=== PATIENT | female | born 1935 | race Caucasian/White ===

== ENCOUNTER 2018-12-14 05:22 | Day surgery (SDC) | payer MEDICARE, MEDICAID ==
[2018-12-14] MEDS ORDERED: ePHEDrine SULF 50 MG/ML ONE (07:00)
[2018-12-14] MEDS ORDERED: SODIUM CHLORIDE 0.9% 50 ML VIAL ONE (07:00)
[2018-12-14] MEDS ORDERED: LIDOCAINE 1% 10 ML VIAL INJ ONE (07:00)
[2018-12-14] MEDS ORDERED: raNITIdine HCL INJ 25 MG/ML VIAL ONE (07:00)
[2018-12-14] MEDS ORDERED: DEXAMETHASONE INJ 10 MG/ML VIAL ONE (07:00)
[2018-12-14] MEDS ORDERED: PROPOFOL 200 MG/20 ML VIAL IV ONE (07:00)
[2018-12-14] MEDS ORDERED: LACTATED RINGERS 1,000 ML ONE (07:14)
[2018-12-14] MEDS ORDERED: cefOXitin SODIUM 2 GM INJ IVPB ONE (07:14)
[2018-12-14] MEDS ORDERED: SODIUM CHL 0.9% 50ML MIN-BAG+ 50 ML IVPB ONE (07:15)
[2018-12-14] MEDS ORDERED: LACTATED RINGERS 1,000 ML IVS ONE ×2 (10:20→13:38)
[2018-12-14] MEDS ORDERED: KETAMINE HCL 100 MG/ML VIAL ONE (12:18)
[2018-12-14] MEDS ORDERED: ROCURONIUM BROMIDE 10 MG/ML VIAL ONE (12:18)
[2018-12-14] MEDS ORDERED: fentaNYL CITRATE INJ 50 MCG/ML AMP ONE (12:18)
[2018-12-14] MEDS ORDERED: BUPIVACAINE 0.5% W/EPI 30 ML VIAL INJ ONE (12:58)
[2018-12-14] MEDS ORDERED: SUGAMMADEX SODIUM 200 MG/2 ML VIAL IV ONE (13:18)
[2018-12-14] MEDS ORDERED: LEVALBUTEROL NEBS 1.25 MG/3 ML VIAL NEB ONE ×2 (13:45)
[2018-12-14] MEDS ORDERED: HYDROcodone 5MG/APAP 325MG 1 EA TAB PO ONE (14:35)
[2018-12-14] MEDS ORDERED: HYDROcodone 5MG/APAP 325MG 1 EA TAB ONE (14:36)
[2018-12-14 15:23] VITALS: BP 121/71; TEMP 98.2; O2SAT 97
--- NOTE | 2018-12-27 10:01 | OP ---
DATE OF PROCEDURE: 12/14/18 PREOPERATIVE DIAGNOSIS: 1. Internal and external hemorrhoids. POSTOPERATIVE DIAGNOSIS: 1. Internal and external hemorrhoids. PROCEDURE: 1. Complete internal and external hemorrhoidectomy. 2. Complete excision of external anal tag. 3. Banding of internal hemorrhoid. 4. Bilateral pudendal nerve blocks for postoperative pain control. SURGEON: Modesto Castaneda MD. ANESTHESIA: General and local. FINDINGS: As described. CONDITION: Stable. PLAN: Discharge. PROCEDURE: General anesthesia was induced. She was placed in a prone, jackknife position with gluteal cheeks taped apart. She was prepped and draped in sterile fashion. Digital rectal exam was normal revealing no masses. Anoscopy exam revealed the hemorrhoids. A single hemorrhoid column was removed, ligating the base, excising in elliptical fashion including external hemorrhoid and tag. It was closed with a running 3-0 Vicryl. A moderate sized external tag was excised and left open. Additional hemorrhoid on the opposite side was banded proximal to the dentate umair. 0.5% Marcaine with epinephrine, 3 mL on each side for bilateral pudendal nerve blocks were performed for postoperative control. Additional local was placed. She tolerated the procedure. She was awakened and taken to Recovery to be discharged. #[id number] [facility]
== END 2018-12-14 15:20 | disposition home or self-care (01) ==
LOC: AMB 05:22
PROVIDERS: ATTEND Surgery
DX: K64.8 Other hemorrhoids (principal); K64.4 Residual hemorrhoidal skin tags; I10 Essential (primary) hypertension; I47.1 Supraventricular tachycardia; K58.2 Mixed irritable bowel syndrome; F41.9 Anxiety disorder, unspecified; K21.9 Gastro-esophageal reflux disease without esophagitis; F32.9 Major depressive disorder, single episode, unspecified; Z88.5 Allergy status to narcotic agent; Z90.710 Acquired absence of both cervix and uterus; Z90.49 Acquired absence of other specified parts of digestive tract; Z87.891 Personal history of nicotine dependence; Z79.899 Other long term (current) drug therapy
CPT/HCPCS: 00902; 36416; 46260; 64450; 82948; 88304; 93005; 94640; A4216; J0694; J1100; J2780; J3010; J3490; J7050; J7120; J7614

== ENCOUNTER → 2019-02-05 | Outpatient (CLI) | payer MEDICARE, MEDICAID ==
--- NOTE | 2019-02-05 20:49 | CT ---
EXAM DESCRIPTION: Pelvis w/Contrast: Computed Tomography. CLINICAL HISTORY: PELVIC MASS COMPARISON: None. TECHNIQUE: Spiral-axial scans 5 x 5 mm intervals through the pelvis: no water soluble barium contrast; with Optiray 320 nonionic IV contrast. Coronal and sagittal 3.0 mm reconstructions. Total Exam DLP: 693.5 mGy-cm. This exam was performed according to our departmental CT dose-optimization program which includes automated exposure control, adjustment of the mA and/or kV according to patient size and/or use of iterative reconstruction technique; to reduce radiation dose to as low as reasonably achievable (ALARA). FINDINGS: Colon: Eccentric enhancing mass in the inferior anterior rectum surrounding low-density material with thickening of the anterior rectal wall and stranding in the anterior perirectal fat, axial images -50. This tissue measures approximately 2.7 x 3.8 x 1.7 cm. The fatty edema does not extend beyond the rectal sling bilaterally. However, minimal fatty stranding/edema is visible in the perineum, more to the right of midline. Also fatty stranding between the left superior anterior rectum and the vagina. Included including descending colon with diverticula. Mild to moderate redundancy of the sigmoid colon. No complications. Pelvic Organs: Urinary bladder distended with no significant amount of contrast. Minimal thickening at the base with no radiodense stones. Mesentery: No free air or free fluid. Small Bowel: Normal caliber with scattered fluid and air. No significant air-fluid levels. Terminal Ileum: Normal caliber. Cecum: normal caliber Spine and Bony Pelvis: Transitional S1 segment partially lumbarized with lumbar-type S1-S2 foramina and a rudimentary S1-S2 disc. Left L5 pars interarticularis spondylolysis. Multiple levels of facet arthrosis. Advanced spondylosis at L3-L4. Bilateral foraminal narrowing. bilateral advanced arthrosis in the hip joints also in the pubic symphysis and SI joints.. Inguinal Canals: Small fatty inguinal hernias bilaterally not containing bowel. Pelvic Wall/Back Soft Tissues: Thinning of the anterior midline raphe of the abdominal wall and hypertrophy of the anterior rectus abdominous muscles. No bowel hernia. Significant atrophy in the inferior left psoas muscle and left iliopsoas. IMPRESSION: 1. 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 Largest dimension is approximately 3.8 cm. Surrounding fatty stranding abutting the rectal sling and extending superiorly into the left abutting the posterior left vagina. Probable fatty inflammatory changes in the perineum. No rectosigmoid obstruction. 2. Diverticulosis in the sigmoid with no diverticulitis or other complications. No bowel obstruction in the included segments. 3. No free fluid or free air in the included peritoneal. Electronically signed by: Robel Vallejo MD 02/05/2019 8:47 PM [employer]
== END ==
LOC: CT 10:41
PROVIDERS: ATTEND Surgery
DX: R19.07 Generalized intra-abdominal and pelvic swelling, mass and lump (principal); K66.8 Other specified disorders of peritoneum; K57.30 Diverticulosis of large intestine without perforation or abscess without bleeding

== ENCOUNTER 2019-02-23 05:47 | Day surgery (SDC) | payer MEDICARE, MEDICAID ==
[2019-02-23] MEDS ORDERED: SODIUM CHLORIDE 0.9% 50 ML VIAL INJ ONE (05:48)
[2019-02-23] MEDS ORDERED: LIDOCAINE 1% 10 ML VIAL INJ ONE (05:48)
[2019-02-23] MEDS ORDERED: PROPOFOL 200 MG/20 ML VIAL IV ONE (05:48)
[2019-02-23] MEDS ORDERED: raNITIdine HCL INJ 25 MG/ML VIAL IV ONE (05:48)
[2019-02-23] MEDS ORDERED: DEXAMETHASONE INJ 10 MG/ML VIAL IV ONE (05:48)
[2019-02-23] MEDS ORDERED: SODIUM CHL 0.9% 100ML MINI-BAG 100 ML IVPB ONE (07:06)
[2019-02-23] MEDS ORDERED: LACTATED RINGERS 1,000 ML ONE (07:06)
[2019-02-23] MEDS ORDERED: cefOXitin SODIUM 2 GM INJ IVPB ONE (07:07)
[2019-02-23] MEDS ORDERED: KETAMINE HCL 100 MG/ML VIAL ONE (12:48)
[2019-02-23] MEDS ORDERED: BUPIVACAINE 0.5% W/EPI 30 ML VIAL INJ ONE ×2 (12:53→13:01)
[2019-02-23] MEDS ORDERED: DEXMEDETOMIDINE HCL 200 MCG/2 ML INJ IV ONE (12:54)
--- NOTE | 2019-02-23 13:59 | OP ---
DATE OF PROCEDURE: 02/23/19 PREOPERATIVE DIAGNOSIS: 1. Rectal mass. POSTOPERATIVE DIAGNOSIS: 1. Rectal polyp/mass. PROCEDURE: 1. Transrectal anal biopsy. SURGEON: Modesto Castaneda MD ANESTHESIA: General and local. FINDINGS: There is a polyp anterior. It was much smaller than the palpated mass in the office and what was seen on CT scan. It likely means this was inflammatory, possibly an abscess that has since drained, but now there is only about a 2 cm, firm, polypoid type lesion remaining. No evidence of pelvic fluctuance or other abnormalities in the colon wall. COMPLICATIONS: None. ESTIMATED BLOOD LOSS: Minimal. SPECIMEN: Rectal lesion. PLAN: Discharge. INDICATION: This is a patient I had previously done hemorrhoids on. Afterwards, she complained of a persistent lump in her rectum that was obstructing stool outflow, similar to her preoperative hemorrhoid complaints. The hemorrhoids seem to have healed well. This raised suspicion and on additional examination, a mass was felt in the rectum. A CT scan was done that showed a thick-walled mass with the center fluid, possibly a necrotizing tumor versus abscess. She was not having fevers or chills. We are now coming to surgery to examine it more directly. PROCEDURE: General anesthesia was induced. She was in the high lithotomy position. Digital rectal exam did not palpate the large mass that I had before, but a smaller residual firm lesion in that same area. Anal speculum was used. A small speculum was not enough to see and I had to use a medium sized, so Szymanski. This did stretch the anal mucosa a little bit, but no tear in the sphincter. I was then able to see the lesion which was now a little bit right and anterior. I was able to grab it with an Allis clamp and with cautery, remove it. Cautery was necessary for hemostasis. No other abnormalities were seen. There was no evidence of fluctuance or intersphincteric or pelvic abscess, etc. It seems like this has resolved a bit and was likely inflammatory. She was awakened and taken to Recovery to be discharged. #[id number] [facility]
[2019-02-23 14:54] VITALS: O2SAT 94
[2019-02-23 15:49] VITALS: BP 144/74; TEMP 96.8
== END 2019-02-23 15:35 | disposition home or self-care (01) ==
LOC: AMB 05:47
PROVIDERS: ATTEND Surgery
DX: K62.89 Other specified diseases of anus and rectum (principal); K62.3 Rectal prolapse; K58.2 Mixed irritable bowel syndrome; I10 Essential (primary) hypertension; F32.9 Major depressive disorder, single episode, unspecified; K21.9 Gastro-esophageal reflux disease without esophagitis; F41.9 Anxiety disorder, unspecified; Z90.710 Acquired absence of both cervix and uterus; Z88.5 Allergy status to narcotic agent; Z79.899 Other long term (current) drug therapy
CPT/HCPCS: 00902; 46606; 88305; A4216; J0694; J1100; J2780; J3490; J7050; J7120